=== PATIENT | female | born 1980 | race Caucasian/White ===

== ENCOUNTER 2019-01-27 14:57 | Emergency (ER) | payer OTHER ==
[~2019-01-27] VITALS: Ht 162.6 cm; Wt 55.8 kg
--- NOTE | 2019-01-27 15:30 | NUR ---
DR CARUSO IS AT THE BEDSIDE. PT REFUSED BLOOD TRANSFUSION.
[2019-01-27 15:54] LABS: BASOPHILS # (AUTO) 0.1 /CMM (0.0-0.2); EOSINOPHILS % (AUTO) 1.6 % (0.0-6.0); LYMPHOCYTES # (AUTO) 0.7 /CMM (0.8-4.8); LYMPHOCYTES % (AUTO) 11.5 % (20.0-44.0); MEAN CORPUSCULAR HGB CONC 26 g/dl (31.0-36.0); MEAN CORPUSCULAR VOLUME 53 fL (82-100); MONOCYTES % (AUTO) 14.8 % (2.0-12.0); NEUTROPHILS # (AUTO) 4.6 /CMM (1.8-8.9); NEUTROPHILS % (AUTO) 71.1 % (43.0-81.0); PLATELET COUNT (AUTO) 582 /CMM (150-450); WHITE BLOOD COUNT (AUTO) 6.5 K/uL (4.3-11.0)
[2019-01-27 16:04] LABS: HEMOGLOBIN 4.5 g/dL (11.5-14.8)
[2019-01-27 16:05] LABS: HEMATOCRIT 17 % (33-45)
[2019-01-27 16:10] LABS: CALCIUM, SERUM 8.7 mg/dL (8.5-10.1); CREATININE 0.7 mg/dL (0.6-1.3); POTASSIUM 4.1 mmol/L (3.5-5.1)
--- NOTE | 2019-01-27 16:15 | NUR ---
DR CARUSO IS AT THE BEDSIDE SPEAKING TO THE PT RE: THE IMPORTANCE OF HAVING A BLOOD TRANSFUSION. PT REFUSED BLOOD TRANSFUSION AGAIN .
--- NOTE | 2019-01-27 16:17 | NUR ---
EKG DONE AT THE BEDSIDE. PT REFUSED IV INSERTION.
--- NOTE | 2019-01-27 16:19 | NUR ---
Patient does not wish to proceed with medical care recommended by Dr. CAURSO. Patient given information related to possible complications, up to and including , which could occur as a result of leaving the hospital at this time. Patient verbalizes understanding of risks involved due to leaving against medical advice. Patient has signed AMA form and it is in the Chart.
[2019-01-27 16:41] LABS: EOSINOPHILS % (MANUAL) 2 % (0-4); LYMPHOCYTES % (MANUAL) 15 % (16-48); MONOCYTES % (MANUAL) 13 % (0-11.0); NEUTROPHILS % (MANUAL) 70 (42-76)
--- NOTE | 2019-01-27 17:07 | NUR ---
PT REC'D AN RX AND [facility] PAPERWORK. PT AMBULATED OUT WITH A STEADY GAIT. VSS.
[2019-01-27 17:08] VITALS: BP 137/95
== END 2019-01-27 17:09 | disposition left against medical advice (07) ==
LOC: ER 15:01
DX: D64.9 Anemia, unspecified (principal); Z60.2 Problems related to living alone
CPT/HCPCS: 36415; 80048-TC; 85025-TC; 85730-TC; 86850-TC; 86921-TC